=== PATIENT | male | born 1985 | race Caucasian/White ===

== ENCOUNTER 2021-07-07 12:50 | Emergency (ER) | payer OTHER, SELFPAY ==
[2021-07-07 12:56] VITALS: BP 133/81; PULSE 86; RESP 14; TEMP 36.7; O2SAT 100
--- NOTE | 2021-07-07 12:57 | ED.MALEGU ---
HPI - Male Genitourinary General Chief complaint: Urogenital-Male Stated complaint: Urinary Problem Time Seen by Provider: 07/07/21 12:57 Source: patient and RN notes reviewed History of Present Illness HPI Narrative: Patient is a 35-year-old male who presents the urgent care with complaints of burning with urination. Patient states that he feels like he has lingering burning after urination. Patient states that it started on Tuesday, seem to clear over the weekend, and then worsened yesterday. Patient states that he drinks an increase in water so denies any recent changes in frequency. Patient denies of any urgency, abdominal pain, fever, blood in the urine or penile drainage/discharge. Patient states he has no concern for STDs. No other acute complaints. No acute distress noted. Patient aware the plan of care. Some parts of this dictation were generated by voice recognition software and may contain typographical and/or grammatical inaccuracies. Related Data Allergies Allergy/AdvReac Type Severity Reaction Status Date / Time No Known Allergies Allergy Verified 07/07/21 13:05 Review of Systems Review of Systems: CONSTITUTIONAL: Denies fever, chills, or sweats. EYES: Denies visual changes, redness, or discharge. ENT: Denies rhinorrhea, congestion, sore throat, or otalgia. CARDIOVASCULAR: Denies chest pain, palpitations, or edema. RESPIRATORY: Denies cough or dyspnea. GASTROINTESTINAL: Denies abdominal pain, nausea, vomiting, or diarrhea. GENITOURINARY: Reports of burning with urination SKIN: Denies rash or itching. MUSCULOSKELETAL: Denies back pain, joint pain, or myalgia. NEUROLOGIC: Denies headache, numbness, or weakness. All other systems reviewed are negative, except as documented in HPI. PMFSH Comments At the time of my signature, I reviewed and agree with the nursing past medical, surgical, social, and family history. There is no relevant family history pertinent to the patient complaint. Exam Narrative: GENERAL: This is a well-nourished, well-developed patient, in no apparent distress. HEAD: normocephalic, atraumatic. EYES: PERRL. Sclera clear/white. Vision is grossly intact. EARS: External ears normal NOSE: External nose normal with no obvious nasal discharge, nares without redness, no rhinorrhea. THROAT: Mucous membranes moist NECK: Neck supple GASTROINTESTINAL: Abdomen soft, non-tender, nondistended. SKIN: warm, intact with no suspicious lesions or rash, good texture and turgor. NEURO: awake, alert, and oriented to person, place and time. There were no obvious focal neurologic abnormalities. EXTREMITIES: No clubbing, cyanosis, or edema. Course Course Level of Care: Express Care Visit Vital Signs Vital signs: Vital Signs Temperature 98.1 F 07/07/21 12:56 Pulse Rate 86 07/07/21 12:56 Respiratory Rate 14 07/07/21 12:56 Blood Pressure 133/81 07/07/21 12:56 Pulse Oximetry 100 07/07/21 12:56 Temperature 98.1 F 07/07/21 13:06 Pulse Rate 86 07/07/21 13:06 Respiratory Rate 14 07/07/21 13:06 Blood Pressure 133/81 07/07/21 13:06 Pulse Oximetry 100 07/07/21 13:06 Reviewed MDM - Male Genitourinary MDM Narrative Medical decision making narrative: Reviewed lab results with the patient. He is aware that urine analysis is indicative of a urinary tract infection. Advised patient to complete the oral antibiotic regimen as prescribed. Be sure to eat and drink with the medication. If you develop any increase in symptoms associated with severe back pain, abdominal pain, nausea, vomiting or blood in the urine?go to the emergency room. We will culture the urine and call if medication needs to be changed, based on culture results. Increase your water intake and avoid sugary and caffeinated drinks. Follow-up with your PCP within 2 to 5 days or for worsening symptoms or failure to improve. Differential Diagnosis Differential diagnosis: Likely urinary tract infection, priapism, urethritis, ep
[2021-07-07 13:06] VITALS: BP 133/81; PULSE 86; RESP 14; TEMP 36.7; O2SAT 100
== END 2021-07-07 13:29 | disposition home or self-care (01) ==
PROVIDERS: Emergency Provider Nurse Practitioner Family
DX: N39.0 Urinary tract infection, site not specified (principal)
CPT/HCPCS: 81003; 87077; 87086; 87088; 87186; 99213; G0463

== ENCOUNTER 2021-07-31 10:49 | Emergency (ER) | payer OTHER, SELFPAY ==
--- NOTE | 2021-07-31 10:51 | ED.URI ---
HPI - URI/Sore Throat General Chief Complaint: Upper Respiratory Infection Stated Complaint: fever cough congestion aches Time Seen by Provider: 07/31/21 10:52 Source: patient and RN notes reviewed History of Present Illness HPI Narrative: Patient is a 35-year-old male who presents the urgent care with complaints of chest heaviness, body aches, fatigue, intermittent fevers, cough and off taste and smell . Patient has not taken a Covid test and states that he has been taking Advil Cold and Sinus and ibuprofen. Patient is also taking Mucinex, Elderberry. Denies of any recent Covid exposures. 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 Patient has not been Covid vaccinated. Nor has patient had a Covid in the past. States that symptoms started 1 week ago. Patient currently denies of chest pain or shortness of breath. No other acute complaints. No acute distress noted. Patient read the plan of care. Some parts of this dictation were generated by voice recognition software and may contain typographical and/or grammatical inaccuracies. Related Data Allergies Allergy/AdvReac Type Severity Reaction Status Date / Time No Known Allergies Allergy Verified 07/31/21 10:59 Review of Systems Review of Systems: CONSTITUTIONAL: Reports fever and fatigue EYES: Denies visual changes, redness, or discharge. ENT: Reports of sinus congestion, rhinorrhea. Reports of change in taste and smell CARDIOVASCULAR: Denies chest pain, palpitations, or edema. RESPIRATORY: Reports a persistent cough without dyspnea GASTROINTESTINAL: Denies abdominal pain, nausea, vomiting, or diarrhea. GENITOURINARY: Denies dysuria or hematuria. SKIN: Denies rash or itching. MUSCULOSKELETAL: Denies back pain, joint pain. Reports of body aches NEUROLOGIC: Denies headache, numbness, or weakness. All other systems reviewed are negative, except as documented in HPI. PMFSH Comments At the time of my signature, I reviewed and agree with the nursing past medical, surgical, social, and family history. There is no relevant family history pertinent to the patient complaint. Exam Narrative: GENERAL: This is a well-nourished, well-developed patient, in no apparent distress. HEAD: normocephalic, atraumatic. EYES: PERRL. Sclera clear/white. Vision is grossly intact. EARS: External ears normal, auditory canals clear and without drainage, TMs normal without perforation. Hearing grossly intact. NOSE: External nose normal with no obvious nasal discharge, nares without redness, no rhinorrhea. THROAT: Mucous membranes moist. Mild erythema of the posterior pharynx with moderate postnasal drainage and mild exudate to the left NECK: Neck supple, non-tender without lymphadenopathy CARDIOVASCULAR: Regular rate and rhythm without murmurs, gallops, or rubs. RESPIRATORY: Clear to auscultation. Breath sounds equal bilaterally. No wheezes, rales, or rhonchi. SKIN: warm, intact with no suspicious lesions or rash, good texture and turgor. NEURO: awake, alert, and oriented to person, place and time. There were no obvious focal neurologic abnormalities. EXTREMITIES: No clubbing, cyanosis, or edema. Course Course Level of Care: Express Care Visit Vital Signs Vital signs: Vital Signs Temperature 99.9 F H 07/31/21 11:01 Pulse Rate 96 07/31/21 11:01 Respiratory Rate 16 07/31/21 11:01 Blood Pressure 148/79 H 07/31/21 11:01 Pulse Oximetry 96 07/31/21 11:01 Temperature 99.9 F H 07/31/21 11:01 Pulse Rate 96 07/31/21 11:01 Respiratory Rate 16 07/31/21 11:01 Blood Pressure 148/79 H 07/31/21 11:01 Pulse Oximetry 96 07/31/21 11:01 Reviewed-patient is informed that they may have pre-hypertension or hypertension based on a blood pressure reading in the department. I recommend the patient call the primary care provider listed on their discharge instructions or a physician of their choice this week to arrange follow-up for further evaluation of possible pre-hypertension or hypertension.
[2021-07-31 11:01] VITALS: BP 148/79; PULSE 96; RESP 16; TEMP 37.7; O2SAT 96
== END 2021-07-31 11:24 | disposition home or self-care (01) ==
PROVIDERS: Emergency Provider Nurse Practitioner Family
DX: U07.1 COVID-19 (principal)
CPT/HCPCS: 87426; 99213; C9803; G0463